=== PATIENT | female | born 1965 | race Asian ===

== ENCOUNTER 2019-12-08 15:03 | Emergency (ER) | payer BC, SELFPAY ==
--- NOTE | 2019-12-08 15:05 | ED.GENADULT ---
HPI - General Adult General Chief complaint: Skin/Abscess/Foreign Body Stated complaint: POS SKIN ABCESS Time Seen by Provider: 12/08/19 15:05 Source: patient Mode of arrival: ambulatory Limitations: no limitations History of Present Illness HPI narrative: 54-year-old female patient presents to the [facility] with complaints of a wound to the right armpit for the past week. Patient states it started off as a very tiny bump but states that she thinks she might of made it worse whenever she went to go and shave her armpit. Patient states it is now bigger and has been draining pus at times. Patient states it is tender to the touch. Denies any fevers, body aches or chills. Related Data Allergies Allergy/AdvReac Type Severity Reaction Status Date / Time HAIR DYE Allergy RASH Uncoded 12/08/19 15:15 Review of Systems Review of Systems: Narrative: CONSTITUTIONAL: Denies fever, chills, or sweats. EYES: Denies visual changes, redness, or discharge. ENT: Denies rhinorrhea, congestion, sore throat, or otalgia. CARDIOVASCULAR: Denies chest pain, palpitations, or edema. RESPIRATORY: Denies cough or dyspnea. GASTROINTESTINAL: Denies abdominal pain, nausea, vomiting, or diarrhea. GENITOURINARY: Denies dysuria or hematuria. SKIN: Denies rash or itching. Positive wound to right armpit x1 week MUSCULOSKELETAL: Denies back pain, joint pain, or myalgia. NEUROLOGIC: Denies headache, numbness, or weakness. PSYCHIATRIC: Denies anxiety or depression. [facility] Past Medical History Medical History (Updated 12/08/19 @ 15:58 by ALFONSO Bernard) Anxiety GERD (gastroesophageal reflux disease) Comments At the time of my signature I agree with nursing past medical history, surgical, social, and family history. There is no relevant family history pertinent to the presenting complaint. Exam Narrative: Exam Narrative: GENERAL: Well-appearing, well-nourished, and in no acute distress. HEAD: Normocephalic, atraumatic. EYES: PERRLA and EOMI. ENT: Nares clear, no rhinorrhea or epistaxis. Mucous membranes moist. NECK: Supple. No lymphadenopathy CHEST: Clear to auscultation. No respiratory distress. HEART: Regular rate and rhythm. No murmur heard. Normal peripheral pulses. ABDOMEN: Soft, nontender, nondistended, normal active bowel sounds. EXTREMITIES: Normal range of motion. No edema. SKIN: Warm, dry, no rash. Patient has small 1 cm x 1 cm raised abscess noted under the right armpit. There does appear to be head and some erythema. It is slightly warm to the touch and tender. There is no active discharge at this time. NEURO: No focal deficits. Alert and oriented x3. Course Vital Signs Vital signs: Vital Signs Temperature 36.6 C 12/08/19 15:09 Pulse Rate 79 12/08/19 15:09 Respiratory Rate 16 12/08/19 15:09 Blood Pressure 109/69 12/08/19 15:09 Pulse Oximetry 97 12/08/19 15:09 Temperature 36.6 C 12/08/19 15:09 Pulse Rate 79 12/08/19 15:09 Respiratory Rate 16 12/08/19 15:09 Blood Pressure 109/69 12/08/19 15:09 Pulse Oximetry 97 12/08/19 15:09 Vital signs reviewed. Procedures Abscess I/D upper extremity: Date of Incision: 12/08/19 Time of Incision: 15:29 Side (if applicable): right Sedation/analgesia: none Local Anesthetic: lidocaine 1% and none (topical LET) Amount of anesthesia used (mL): 2 Technique: incised with #11 blade and other (18-gauge needle) Irrigation: No Packing used?: none I&D Results: Pus and Blood Abcess I&D Additional Comments: The procedure was explained and verbal consent is obtained. The wound was anesthetized with topical LET and 2 ml of 1% lidocaine with good anesthesia. Sterile drape and prep are done. The fluctuant center was incised with #11 blade. A small amount of pus was expressed. The wound was probed for loculated area and irrigated with normal saline. Wound was left open. Dressing was applied. The patient tolerate
[2019-12-08 15:09] VITALS: BP 109/69; PULSE 79; RESP 16; TEMP 36.6; O2SAT 97
== END 2019-12-08 16:09 | disposition home or self-care (01) ==
PROVIDERS: Emergency Provider Nurse Practitioner Family
DX: L02.411 Cutaneous abscess of right axilla (principal); B96.89 Other specified bacterial agents as the cause of diseases classified elsewhere; F41.9 Anxiety disorder, unspecified; K21.9 Gastro-esophageal reflux disease without esophagitis
CPT/HCPCS: 10060; 87070; 87075; 87205; 99213; G0463

== ENCOUNTER 2020-12-08 12:08 | Emergency (ER) | payer OTHER, SELFPAY ==
--- NOTE | 2020-12-08 12:14 | ED.EAR ---
HPI - Ear Problem General Chief complaint: Ear Stated complaint: ears clogged Time Seen by Provider: 12/08/20 12:15 Source: patient and RN notes reviewed History of Present Illness HPI Narrative: Patient is a 55-year-old female who presents the urgent care with complaints of bilateral cerumen impaction and decreased hearing. Patient states is been ongoing for the last several days and she has tried Debrox to the right ear without any resolution. Patient states that this happens every year . No other acute complaints. No acute distress noted. Patient aware of the plan of care. Some parts of this dictation were generated by voice recognition software and may contain typographical and/or grammatical inaccuracies. Related Data Allergies Allergy/AdvReac Type Severity Reaction Status Date / Time paraben Allergy Severe Nausea And Verified 04/30/20 09:44 Vomiting HAIR DYE Allergy RASH Uncoded 04/30/20 09:44 Review of Systems Review of Systems: CONSTITUTIONAL: Denies fever, chills, or sweats. EYES: Denies visual changes, redness, or discharge. ENT: Denies rhinorrhea, congestion, sore throat. Reports of bilateral cerumen impaction with decreased hearing CARDIOVASCULAR: Denies chest pain, palpitations, or edema. RESPIRATORY: Denies cough or dyspnea. GASTROINTESTINAL: Denies abdominal pain, nausea, vomiting, or diarrhea. GENITOURINARY: Denies dysuria or hematuria. SKIN: Denies rash or itching. MUSCULOSKELETAL: Denies back pain, joint pain, or myalgia. NEUROLOGIC: Denies headache, numbness, or weakness. All other systems reviewed are negative, except as documented in HPI. [facility] Past Medical History Medical History (Updated 12/08/20 @ 12:37 by ALFONSO Dia) Anxiety GERD (gastroesophageal reflux disease) Family History Family History (System 04/30/20 @ 09:44 by Mathew Christine) Sibling Family history of type 2 diabetes mellitus Mother Patient's mother is , Onset Age: 78 Patient's mother is in good health Father Patient's father is Other Diabetes mellitus Hypertension Social History Social History (System 04/30/20 @ 09:44 by Mathew Christine) Smoking status: Never smoker Second hand tobacco smoke exposure: No Alcohol intake: never Comments At the time of my signature, I reviewed and agree with the nursing past medical, surgical, social, and family history. There is no relevant family history pertinent to the patient complaint. Exam Narrative: GENERAL: This is a well-nourished, well-developed patient, in no apparent distress. HEAD: normocephalic, atraumatic. EYES: PERRL. Sclera clear/white. Vision is grossly intact. EARS: External ears normal, auditory canals clear and without drainage, unable to visualize bilateral TMs due to cerumen impaction. NOSE: External nose normal with no obvious nasal discharge, nares without redness, no rhinorrhea. THROAT: Mucous membranes moist, posterior pharynx clear. NECK: Neck supple, non-tender without lymphadenopathy, masses or thyromegaly. CARDIOVASCULAR: Regular rate and rhythm without murmurs, gallops, or rubs. RESPIRATORY: Clear to auscultation. Breath sounds equal bilaterally. No wheezes, rales, or rhonchi. SKIN: warm, intact with no suspicious lesions or rash, good texture and turgor. NEURO: awake, alert, and oriented to person, place and time. There were no obvious focal neurologic abnormalities. EXTREMITIES: No clubbing, cyanosis, or edema. Course Vital Signs Vital signs: Vital Signs Temperature 97.6 F 12/08/20 12:21 Pulse Rate 69 12/08/20 12:21 Respiratory Rate 16 12/08/20 12:21 Blood Pressure 119/78 12/08/20 12:21 Pulse Oximetry 100 12/08/20 12:21 Temperature 97.6 F 12/08/20 12:21 Pulse Rate 69 12/08/20 12:21 Respiratory Rate 16 12/08/20 12:21 Blood Pressure 119/78 12/08/20 12:21 Pulse Oximetry 100 12/08/20 12:21 Reviewed Procedures Ear Wax Removal Both Ears: Cerumen
[2020-12-08 12:21] VITALS: BP 119/78; PULSE 69; RESP 16; TEMP 36.4; O2SAT 100
== END 2020-12-08 12:42 | disposition home or self-care (01) ==
PROVIDERS: Emergency Provider Nurse Practitioner Family; PCP Internal Medicine
DX: H61.23 Impacted cerumen, bilateral (principal); K21.9 Gastro-esophageal reflux disease without esophagitis
CPT/HCPCS: 69210; 99213; A9270; G0463

== ENCOUNTER 2020-12-10 11:10 | Emergency (ER) | payer OTHER, SELFPAY ==
--- NOTE | 2020-12-10 11:14 | ED.EAR ---
HPI - Ear Problem General Chief complaint: Ear Stated complaint: ear clogged Time Seen by Provider: 12/10/20 11:14 Source: patient and RN notes reviewed History of Present Illness HPI Narrative: Patient is a 55-year-old female who presents the urgent care with complaints of right ear clogged. Patient states that she was at the facility 2 days ago and had her ears cleaned out and they felt much better but then she use Debrox for the last 2 days to the right ear which is caused clogging again . Patient denies of any other upper respiratory complaints. Denies of any fevers. No other acute complaints. No acute distress noted. Patient aware of the plan of care. Some parts of this dictation were generated by voice recognition software and may contain typographical and/or grammatical inaccuracies. Related Data Allergies Allergy/AdvReac Type Severity Reaction Status Date / Time paraben Allergy Severe Nausea And Verified 04/30/20 09:44 Vomiting HAIR DYE Allergy RASH Uncoded 04/30/20 09:44 Review of Systems Review of Systems: CONSTITUTIONAL: Denies fever, chills, or sweats. EYES: Denies visual changes, redness, or discharge. ENT: Denies rhinorrhea, congestion, sore throat. Reports of right ear clogged CARDIOVASCULAR: Denies chest pain, palpitations, or edema. RESPIRATORY: Denies cough or dyspnea. GASTROINTESTINAL: Denies abdominal pain, nausea, vomiting, or diarrhea. GENITOURINARY: Denies dysuria or hematuria. SKIN: Denies rash or itching. MUSCULOSKELETAL: Denies back pain, joint pain, or myalgia. NEUROLOGIC: Denies headache, numbness, or weakness. All other systems reviewed are negative, except as documented in HPI. [facility] Past Medical History Medical History (Updated 12/10/20 @ 11:31 by ALFONSO Dia) Anxiety GERD (gastroesophageal reflux disease) Family History Family History (System 04/30/20 @ 09:44 by Mathew Christine) Sibling Family history of type 2 diabetes mellitus Mother Patient's mother is , Onset Age: 78 Patient's mother is in good health Father Patient's father is Other Diabetes mellitus Hypertension Social History Social History (System 04/30/20 @ 09:44 by Mathew Christine) Smoking status: Never smoker Second hand tobacco smoke exposure: No Alcohol intake: never Comments At the time of my signature, I reviewed and agree with the nursing past medical, surgical, social, and family history. There is no relevant family history pertinent to the patient complaint. Exam Narrative: GENERAL: This is a well-nourished, well-developed patient, in no apparent distress. HEAD: normocephalic, atraumatic. EYES: PERRL. Sclera clear/white. Vision is grossly intact. EARS: External ears normal, auditory canals clear and without drainage, unable to visualize right TM due to cerumen impaction, left TM normal without perforation. Hearing grossly intact. NOSE: External nose normal with no obvious nasal discharge, nares without redness, no rhinorrhea. THROAT: Mucous membranes moist NECK: Neck supple RESPIRATORY: Clear to auscultation. Breath sounds equal bilaterally. No wheezes, rales, or rhonchi. SKIN: warm, intact with no suspicious lesions or rash, good texture and turgor. NEURO: awake, alert, and oriented to person, place and time. There were no obvious focal neurologic abnormalities. EXTREMITIES: No clubbing, cyanosis, or edema. Course Vital Signs Vital signs: Vital Signs Temperature 98.3 F 12/10/20 11:16 Pulse Rate 100 12/10/20 11:16 Respiratory Rate 16 12/10/20 11:16 Blood Pressure 112/78 12/10/20 11:16 Pulse Oximetry 99 12/10/20 11:16 Temperature 98.3 F 12/10/20 11:16 Pulse Rate 100 12/10/20 11:16 Respiratory Rate 16 12/10/20 11:16 Blood Pressure 112/78 12/10/20 11:16 Pulse Oximetry 99 12/10/20 11:16 Reviewed Procedures Ear Wax Removal Right Ear: Cerumenolytic Used: other (50-50 peroxide and warm water)
[2020-12-10 11:16] VITALS: BP 112/78; PULSE 100; RESP 16; TEMP 36.8; O2SAT 99
== END 2020-12-10 11:41 | disposition home or self-care (01) ==
PROVIDERS: Emergency Provider Nurse Practitioner Family; PCP Internal Medicine
DX: H61.21 Impacted cerumen, right ear (principal); K21.9 Gastro-esophageal reflux disease without esophagitis
CPT/HCPCS: 69209; 99212; A9270; G0463

== ENCOUNTER 2022-12-21 08:33 | Emergency (ER) | payer OTHER, SELFPAY ==
--- NOTE | 2022-12-21 08:35 | ED.SKABFB ---
HPI - Skin/Abscess/Foreign Bdy General Chief complaint: Skin/Abscess/Foreign Body Stated complaint: RASH ON CHEST Time Seen by Provider: 12/21/22 08:40 Source: patient, RN notes reviewed and old records reviewed Mode of arrival: ambulatory Limitations: no limitations History of Present Illness HPI narrative: 57-year-old female presents to the [facility] with complaints of a rash to the right medial breast. States that it appeared 2-3 days ago as a couple little blisters and has gotten worse. Describes it as being painful at times. No new creams ointments lotions or detergents. No new clothes. States that she took 1 Benadryl yesterday with no improvement Denies fevers. Denies chest pain or abdominal pain. Onset (ago): day(s) (2-3) Related Data Allergies Allergy/AdvReac Type Severity Reaction Status Date / Time paraben Allergy Severe Nausea And Verified 12/21/22 08:52 Vomiting HAIR DYE Allergy RASH Uncoded 12/21/22 08:52 Review of Systems Review of Systems: All systems reviewed & are unremarkable except as noted in HPI and below Constitutional: Constitutional: Reports no additional constitutional complaints Eyes: Eyes: Reports no additional eye complaints ENT: Reports system reviewed and no additional complaints, except as documented Cardiovascular: Cardiovascular: Reports no additional cardiovascular complaints, Denies chest pain and Denies dyspnea Respiratory: Respiratory: Reports no additional respiratory complaints, Denies chest congestion, Denies cough and Denies dyspnea Gastrointestinal: Gastrointestinal: Reports no additional gastrointestinal complaints, Denies abdominal pain, Denies nausea and Denies vomiting Musculoskeletal: Musculoskeletal: Reports no additional musculoskeletal complaints Integumentary/Breasts: Skin/Breast: Reports as per HPI Neurologic: Reports system reviewed and no additional complaints, except as documented Psychiatric: Psychiatric: Reports no additional psychiatric complaints Allergic/Immunologic: Allergic/Immunologic: Reports no additional allergic/immunologic complaints [facility] Past Medical History Medical History Anxiety GERD (gastroesophageal reflux disease) Family History Family History Sibling Family history of type 2 diabetes mellitus Mother Patient's mother is , Onset Age: 78 Patient's mother is in good health Father Patient's father is Other Diabetes mellitus Hypertension Social History Social History Smoking status: Never smoker Second hand tobacco smoke exposure: No Alcohol intake: never Comments At the time of my signature, I reviewed and agree with the nursing past medical, surgical, social, and family history. There is no relevant family history pertinent to the patient complaint. Exam Const: General: cooperative, healthy appearing, comfortable, no acute distress, well developed, alert and well nourished Nutritional Appearance: well nourished Orientation/consciousness: patient oriented x3 Limitations: no limitations HENMT: Head: normal to inspection Ears: hearing grossly normal bilaterally and external ears normal Face/Nose/Sinus: Normal external nose present, Normal nares present, Normal nasal mucous membranes and turbinates present, normal facial exam and face symmetric Face and sinus: normal facial exam and face symmetric Mouth: Yes lip normal Eyes: General: appearance normal, both eyes and all related structures Alignment and Position: alignment normal Periorbital: periorbital findings normal Pupils: Equal, round and reactive pupils present EOM: EOMs intact bilaterally Neck: Neck: normal visual inspection, full ROM, no lymphadenopathy and no meningeal signs Chest: Chest palpation & inspection: normal inspection of the chest Chest/axil
[2022-12-21 08:46] VITALS: BP 128/86; PULSE 81; RESP 16; TEMP 36.4; O2SAT 98
== END 2022-12-21 08:57 | disposition home or self-care (01) ==
PROVIDERS: Emergency Provider Nurse Practitioner
DX: B02.9 Zoster without complications (principal); N61.0 Mastitis without abscess; K21.9 Gastro-esophageal reflux disease without esophagitis
CPT/HCPCS: 99213; G0463

== ENCOUNTER 2023-05-18 22:05 | Emergency (ER) | payer OTHER, SELFPAY ==
[2023-05-18 22:06] VITALS: BP 153/89; PULSE 90; RESP 16; TEMP 36.4; O2SAT 99
[2023-05-18 23:10] VITALS: BP 131/89; PULSE 95; RESP 15; O2SAT 98
--- NOTE | 2023-05-18 23:15 | ED.GENADULT ---
HPI - General Adult General Chief complaint: GI Bleed Stated complaint: bleeding from rectum since sunday Time Seen by Provider: 05/18/23 23:03 History of Present Illness HPI narrative: This is a 57-year-old female presenting ED with a chief complaint of rectal bleeding. Patient has been having several small drops of blood in the toilet after having a bowel movement as well as some blood when she wipes with toilet paper. Is a relatively small amount of blood. Patient not have a history hemorrhoids or diverticula patient has no other complaints including lightheadedness, presyncope shortness breast chest pain. No use of blood thinners. Related Data Allergies Allergy/AdvReac Type Severity Reaction Status Date / Time paraben Allergy Severe Nausea And Verified 12/21/22 08:52 Vomiting HAIR DYE Allergy RASH Uncoded 12/21/22 08:52 [facility] Past Medical History Medical History Anxiety GERD (gastroesophageal reflux disease) Family History Family History Sibling Family history of type 2 diabetes mellitus Mother Patient's mother is , Onset Age: 78 Patient's mother is in good health Father Patient's father is Other Diabetes mellitus Hypertension Social History Social History Smoking status: Never smoker Second hand tobacco smoke exposure: No Alcohol intake: never Exam Narrative: APPEARANCE: No apparent distress. Head: atraumatic. EYES: EOMI, NOSE: Atraumatic NECK: Trachea midline RESPIRATORY: No increased rate of breathing CARDIOVASCULAR: RRR, ABDOMINAL: Non-distended soft nontender Rectal exam: Small external hemorrhoid, no rohith blood or hemoccult blood on digital rectal exam. MUSCULOSKELETAl: No obvious deformities NEURO: Alert. Moving 4/4 extremities SKIN:: Warm, dry. Normal color PSYCHIATRIC: Normal affect Course Vital Signs Vital signs: Vital Signs Temperature 97.6 F 05/18/23 22:06 Pulse Rate 90 05/18/23 22:06 Respiratory Rate 16 05/18/23 22:06 Blood Pressure 153/89 H 05/18/23 22:06 Pulse Oximetry 99 05/18/23 22:06 Oxygen Delivery Room Air 05/18/23 22:06 Temperature 97.6 F 05/18/23 22:06 Pulse Rate 95 05/18/23 23:10 Respiratory Rate 15 05/18/23 23:10 Blood Pressure 131/89 05/18/23 23:10 Pulse Oximetry 98 05/18/23 23:10 Oxygen Delivery Room Air 05/18/23 22:06 Medical Decision Making MDM Narrative Medical decision making narrative: -Course: 57-year-old female presenting with a small amount of rectal bleeding after bowel movement. Hemorrhoid on physical exam. Vital signs stable. No significant bleeding. patient be discharged with primary care follow-up. -DDX includes but is not limited to: Hemorrhoids, diverticular bleed, constipation -Shared decision making / Disposition: Discharge -RX Anusol Vital Signs Vital Signs: Vital Signs Temperature 97.6 F 05/18/23 22:06 Pulse Rate 90 05/18/23 22:06 Respiratory Rate 16 05/18/23 22:06 Blood Pressure 153/89 H 05/18/23 22:06 Pulse Oximetry 99 05/18/23 22:06 Oxygen Delivery Room Air 05/18/23 22:06 Temperature 97.6 F 05/18/23 22:06 Pulse Rate 95 05/18/23 23:10 Respiratory Rate 15 05/18/23 23:10 Blood Pressure 131/89 05/18/23 23:10 Pulse Oximetry 98 05/18/23 23:10 Oxygen Delivery Room Air 05/18/23 22:06 Discharge Plan Discharge Clinical Impression: Hemorrhoids Patient Disposition: Home, Self-Care Condition: Stable Instructions: Antibiotic Form, Hemorrhoids (ED) Additional Instructions: Please follow-up with your primary care physician for further management. Prescriptions: New hydrocortisone acetate [Anucort-HC] 25 mg suppository 25 mg RECTAL DAILY Qty: 12 0RF No Action valacyclovir 1 gram tablet 1,000 mg PO TID
== END 2023-05-18 23:32 | disposition home or self-care (01) ==
PROVIDERS: Emergency Provider Emergency Medicine
DX: K64.9 Unspecified hemorrhoids (principal); K21.9 Gastro-esophageal reflux disease without esophagitis
CPT/HCPCS: 99283

== ENCOUNTER 2024-05-21 09:36 | Emergency (ER) | payer OTHER, SELFPAY ==
--- NOTE | 2024-05-21 09:41 | ED_ITS ---
HPI - URI/Sore Throat General Chief Complaint: Upper Respiratory Infection Stated Complaint: Sinus Infection Symptoms Time Seen by Provider: 05/21/24 10:46 Source: patient and RN notes reviewed Mode of arrival: ambulatory Limitations: no limitations History of Present Illness HPI Narrative: 58-year-old female presents with concern of for runny nose, right ear pain, sore throat, cough, head congestion for 2 days. She denies fever. MD elicited complaint: sore throat, rhinorrhea and nasal congestion Related Data Home Medications ?Medication ?Instructions ?Recorded ?Confirmed ?Last Taken ?Type atorvastatin 10 mg tablet 10 mg PO QPM 05/21/24 05/21/24 Unknown History metformin 500 mg tablet 500 mg PO DAILY 05/21/24 05/21/24 Unknown History multivitamin (Daily Multi-Vitamin 1 tablet PO DAILY 05/21/24 05/21/24 Unknown History tablet) Allergies Allergy/AdvReac Type Severity Reaction Status Date / Time paraben Allergy Severe Nausea And Verified 05/21/24 10:00 Vomiting HAIR DYE Allergy RASH Uncoded 05/21/24 10:00 Review of Systems Review of Systems: CONSTITUTIONAL: Reports malaise. Denies chills, sweats, or fever. EYES: Denies visual changes, redness, or discharge. ENT: Reports rhinorrhea, congestion, otalgia and sore throat. CARDIOVASCULAR: Denies chest pain, palpitations, or edema. RESPIRATORY: Reports cough. Denies dyspnea. GASTROINTESTINAL: Denies abdominal pain, nausea, vomiting, diarrhea SKIN: Denies rash or itching. MUSCULOSKELETAL: Denies myalgia. NEUROLOGIC: Denies headache. All systems reviewed & are unremarkable except as noted in HPI and below PMFSH Past Medical History Medical History Anxiety GERD (gastroesophageal reflux disease) Family History Family History Sibling Family history of type 2 diabetes mellitus Mother Patient's mother is , Onset Age: 78 Patient's mother is in good health Father Patient's father is Other Diabetes mellitus Hypertension Social History Social History Smoking status: Never smoker Second hand tobacco smoke exposure: No Alcohol intake: never Comments At time of signature, agree with nursing past medical, surgical, social and family history. There is no relevant family history pertinent to the presenting complaint Exam Narrative: GENERAL: Nontoxic-appearing, well-nourished, and in no acute distress. HEAD: Normocephalic EYES: PERRLA, conjunctivae clear ENT: Nares clear, turbinates edematous and erythematous, clear discharge. Mucous membranes moist. TM not visible digit excess cerumen bilaterally; no tragal tenderness. Oropharynx not erythematous without lesions. Tonsils not enlarged and without exudate, no drooling, no hoarseness, no trismus, uvula midline. NECK: Supple. No lymphadenopathy CHEST: Clear to auscultation, breath sounds equal. No wheezing, rhonchi, rales, or stridor. No respiratory distress, speaks in full sentences. HEART: Regular rate and rhythm. No murmur heard. SKIN: Warm, dry, no rash. NEURO: Alert and oriented x3. PSYCH: Normal mood and affect Course Course Emergency Course: Patient did not tolerate your wax removal, advised patient on how to soften the earwax over the next 2-3 days. If her ear pain persists or worsened I advised her to be re-evaluated once her earwax is soft. Patient is aware of diagnosis, understands and agrees to treatment plan. Anticipatory guidance given. Patient agrees to follow-up as directed and is aware of reasons to seek care at the emergency department. Portions of this record may have been created with voice recognition software Level of Care: Express Care Visit Vital Signs Vital signs: Reviewed. MDM - URI/Sore Throat MDM Narrative Medical decision making narrative: Differential diagnosis considered: Anand virus, strep pharyngitis, allergic rhinitis, upper respiratory tract infection, sinusitis, rhinosinusitis, nasopharyngitis. viral pharyngitis, otitis media, otitis externa, pneumonia, bronchitis, viral cough syndrome, viral syndrome, and influenza. Exam findings show no acute concerns or changes; patient is non-toxic appearing and is in no distress. Patient is appropriate for outpatient treatment and follow-up. Lab Data Attestation: I reviewed the patient's lab results. Critical Care Time Critical Care Time Critical Care Time: No Discharge Plan Discharge Clinical Impression: Upper respiratory infection Patient Disposition: Home, Self-Care Condition: Stable Instructions: Upper Respiratory Infection (ED) Additional Instructions: Your rapid COVID and flu tests are negative -Take strict precautions to prevent the spread of your virus. Be diligent about covering your cough (even when you are alone) and washing your hands frequently. -You may contagious until you have been symptom and/or fever free for 24 hours without fever reducing medicine -Alternate Ibuprofen and Tylenol for pain and fever relief (per package directions) -Drink plenty of fluid - drink fluid with electrolytes such as Gatorade or other oral re-hydration solution. Avoid caffeine, which can make dehydration worse. -Get plenty of rest to help your body heal. -Use a cool mist humidifier for chest and nasal congestion. -Eat RAW honey or use cough drops to ease throat discomfort -Do not smoke or expose children to secondhand smoke -Wash your hands frequently. -Please follow-up with your primary care doctor in the next 1-2 days if your symptoms do not improve. -If you have any worsening of symptoms or any other concerns please go to the ED immediately. -Please take medications as prescribed and continue taking your home medications as usual. Patient Language: Montserratian Prescriptions: New cetirizine-pseudoephedrine [Zyrtec-D] 5-120 mg tablet extended release 12 hr 1 tablet PO Q12H PRN (Reason: nasal congestion) Qty: 12 0RF ipratropium bromide 21 mcg (0.03 %) spray,non-aerosol 2 spray NASAL TID PRN (Reason: nasal drainage) Qty: 30 0RF Rx Instructions: administer into each nostril No Action valacyclovir 1 gram tablet 1,000 mg PO TID 7 Days Qty: 21 0RF metformin 500 mg tablet 500 mg PO DAILY atorvastatin 10 mg tablet 10 mg PO QPM multivitamin [Daily Multi-Vitamin] Tablet 1 tablet PO DAILY hydrocortisone acetate [Anucort-HC] 25 mg suppository 25 mg RECTAL DAILY Qty: 12 0RF Follow-up/Referrals: PHYSICIAN,[facility] [Primary Care Provider] - Time of Disposition: 10:55
[2024-05-21 10:07] VITALS: BP 136/92; PULSE 98; RESP 16; TEMP 36.2; O2SAT 98
[2024-05-21 10:49] LABS: EDCOVIDSCREEN Negative (Negative); EDINFLUASCREEN Negative (Negative); EDINFLUBSCREEN Negative (Negative)
== END 2024-05-21 11:01 | disposition home or self-care (01) ==
PROVIDERS: Emergency Provider Nurse Practitioner
DX: J06.9 Acute upper respiratory infection, unspecified (principal); Z20.822 Contact with and (suspected) exposure to COVID-19; K21.9 Gastro-esophageal reflux disease without esophagitis
CPT/HCPCS: 87426; 87804; 99213; G0463

== ENCOUNTER 2024-06-06 14:24 | Emergency (ER) | payer OTHER, SELFPAY ==
--- NOTE | 2024-06-06 14:33 | ED_ITS ---
HPI - Eye Problem General Chief complaint: Eye Problems Stated complaint: R EYE PAIN Time Seen by Provider: 06/06/24 14:37 Source: patient Mode of arrival: ambulatory Limitations: no limitations History of Present Illness HPI Narrative: 58 yo F presents with c/o pain to R eye with light sensitivity and clear drainage for approx. 4 days. pt wears daily contacts. Denies eye injury. No vision change. No pain at night when she's sleeping. Gets eye exam and contacts from [facility] but states he's not an eye doctor . didnt call there regarding symptoms. All systems reviewed and negative except as noted above. Related Data Home Medications ?Medication ?Instructions ?Recorded ?Confirmed ?Last Taken ?Type atorvastatin 10 mg tablet 10 mg PO QPM 05/21/24 05/21/24 Unknown History metformin 500 mg tablet 500 mg PO DAILY 05/21/24 05/21/24 Unknown History multivitamin (Daily Multi-Vitamin 1 tablet PO DAILY 05/21/24 05/21/24 Unknown History tablet) Allergies Allergy/AdvReac Type Severity Reaction Status Date / Time paraben Allergy Severe Nausea And Verified 06/06/24 14:37 Vomiting HAIR DYE Allergy RASH Uncoded 05/21/24 10:00 Review of Systems 2 Review of Systems: CONSTITUTIONAL: Denies fever, chills, or sweats. EYES: Denies visual changes, redness. Reports pain to right eye with clear drainage and light sensitivity. ENT: Denies rhinorrhea, congestion, sore throat, or otalgia. CARDIOVASCULAR: Denies chest pain, palpitations, or edema. RESPIRATORY: Denies cough or dyspnea. GASTROINTESTINAL: Denies abdominal pain, nausea, vomiting, or diarrhea. GENITOURINARY: Denies dysuria or hematuria. SKIN: Denies rash or itching. MUSCULOSKELETAL: Denies back pain, joint pain, or myalgia. NEUROLOGIC: Denies headache, numbness, or weakness. PSYCHIATRIC: Denies anxiety or depression. All other systems reviewed are negative, except as documented in HPI. [facility] Past Medical History Medical History Anxiety GERD (gastroesophageal reflux disease) Family History Family History Sibling Family history of type 2 diabetes mellitus Mother Patient's mother is , Onset Age: 78 Patient's mother is in good health Father Patient's father is Other Diabetes mellitus Hypertension Social History Social History Smoking status: Never smoker Second hand tobacco smoke exposure: No Alcohol intake: never Comments At time of signature, agree with nursing past medical, surgical, social and family history. There is no relevant family history pertinent to the presenting complaint. Exam 2 Narrative: GENERAL: This is a well-nourished, well-developed patient, in no apparent distress. HEAD: normocephalic, atraumatic. EYES: PERRL. Sclera and conjunctiva clear/white bilaterally. Vision is grossly intact. Topical anesthetic was instilled with good anesthesia using 1gtt of opth anesthetic agent (tetracaine). Fluorescein stain of the R eye was performed. corneal abrasion noted(see eye image) NO FB, ulcer or dendritic lesions. Upper lid was everted and no FB or lesions were noted. Normal saline irrigation eye solution was performed and the patient tolerated the procedure well, no adverse reaction or complications. Noted intraocular pressure readings. EARS: External ears normal NOSE: External nose normal THROAT: Mucous membranes moist, posterior pharynx clear. NECK: Neck supple, non-tender without lymphadenopathy, masses or thyromegaly. CARDIOVASCULAR: Regular rate and rhythm without murmurs, gallops, or rubs. RESPIRATORY: Clear to auscultation. Breath sounds equal bilaterally. No wheezes, rales, or rhonchi. SKIN: warm, Dry, intact with no suspicious lesions or rash, good texture and turgor. NEURO: awake, alert, and oriented to person, place and time. There were no obvious focal neurologic abnormalities. EXTREMITIES: No joint tenderness, effusion, or edema noted. Eyes: Eyes/upper lids images: 1. corneal abrasion 2. corneal abrasion Course Course Level of Care: Express Care Visit Vital Signs Vital signs: Vital Signs Temperature 36.5 C 06/06/24 14:38 Pulse Rate 72 06/06/24 14:38 Respiratory Rate 18 06/06/24 14:38 Blood Pressure 119/79 06/06/24 14:38 Pulse Oximetry 98 06/06/24 14:38 Oxygen Delivery Room Air 06/06/24 14:38 Temperature 36.5 C 06/06/24 14:38 Pulse Rate 72 06/06/24 14:38 Respiratory Rate 18 06/06/24 14:38 Blood Pressure 119/79 06/06/24 14:38 Pulse Oximetry 98 06/06/24 14:38 Oxygen Delivery Room Air 06/06/24 14:38 Reviewed MDM - Eye Problem MDM Narrative Medical decision making narrative: Corneal abrasion versus keratitis. No vision changes. Clear drainage noted from right eye. Will treat erythromycin and moisturizing eyedrops. Patient has continue to wear contacts with current eye complaints, after taking contacts out at night and going to bed patient has no pain during the night. Recommend no contacts. Recommend follow up with building performance specialist in 24 hours. Will go to the ER for any worsening of symptoms. Please be advised this is a medical document. It is intended for [id number] communication. It is written in medical language and may contain unfamiliar abbreviations or verbiage. Medical documents are intended to carry relevant information, facts as evident, and the clinical opinion of the practitioner at the time of the encounter. This report may have been done utilizing a voice recognition system. Attempts have been made to correct errors. However, there may be uncorrected grammatical, spelling, and recognition errors present. The file time of this note does not necessarily represent the time of service. Discharge Plan Discharge Clinical Impression: Abrasion, corneal Qualifiers: Encounter type: initial encounter Laterality: right Qualified Code(s): S05.01XA - Injury of conjunctiva and corneal abrasion without foreign body, right eye, initial encounter Patient Disposition: Home, Self-Care Condition: Stable Instructions: Antibiotic Form, Corneal Abrasion (ED) Additional Instructions: Use medications as prescribed. Do not wear contacts. See your building performance specialist in the next 24 hours. Patient Language: Georgian Prescriptions: New erythromycin 5 mg/gram (0.5 %) ointment 1 applic RIGHT EYE QID 10 Days Qty: 3.5 0RF Systane Complete PF 0.6 % dropperette 1 - 2 drp ophthalmic (eye) Q3-4H Qty: 30 0RF Rx Instructions: use until symptoms resolved No Action valacyclovir 1 gram tablet 1,000 mg PO TID 7 Days Qty: 21 0RF metformin 500 mg tablet 500 mg PO DAILY atorvastatin 10 mg tablet 10 mg PO QPM multivitamin [Daily Multi-Vitamin] Tablet 1 tablet PO DAILY cetirizine-pseudoephedrine [Zyrtec-D] 5-120 mg tablet extended release 12 hr 1 tablet PO Q12H PRN (Reason: nasal congestion) Qty: 12 0RF ipratropium bromide 21 mcg (0.03 %) spray,non-aerosol 2 spray NASAL TID PRN (Reason: nasal drainage) Qty: 30 0RF Rx Instructions: administer into each nostril hydrocortisone acetate [Anucort-HC] 25 mg suppository 25 mg RECTAL DAILY Qty: 12 0RF Follow-up/Referrals: PHYSICIAN NOT ON STAFF,NONSTAFF [Primary Care Provider] - Time of Disposition: 14:53
[2024-06-06 14:38] VITALS: BP 119/79; PULSE 72; RESP 18; TEMP 36.5; O2SAT 98
== END 2024-06-06 15:07 | disposition home or self-care (01) ==
PROVIDERS: Emergency Provider Nurse Practitioner Family
DX: S05.01XA Injury of conjunctiva and corneal abrasion without foreign body, right eye, initial encounter (principal); X58.XXXA Exposure to other specified factors, initial encounter
CPT/HCPCS: 99213; A9270; G0463